=== PATIENT | female | born 1995 | race Asian ===

== ENCOUNTER 2020-01-11 02:02 | Inpatient (IN) | payer OTHER ==
[~2020-01-11] VITALS: Ht 170.2 cm; Wt 85.0 kg
[2020-01-11 08:40] VITALS: BP 124/77
[2020-01-11] MEDS ORDERED: LORazepam 2 MG TABLET PO PRN (08:45)
[2020-01-11] MEDS ORDERED: NICOTINE 14 MG/24 HOUR PATCH TD PRN (10:00)
[2020-01-11] MEDS ORDERED: GuaiFENesin/D-METHORPHAN [SUGAR-FREE] 200-20MG/10 ML SYRUP UDCUP PO PRN (10:00)
[2020-01-11] MEDS ORDERED: CloNIDine HCL 0.1 MG TABLET PO PRN (10:00)
[2020-01-11] MEDS ORDERED: DOCUSATE SODIUM 100 MG CAPSULE PO PRN (10:00)
[2020-01-11] MEDS ORDERED: PETROLATUM,WHITE 28 GM JELLY TP PRN (10:00)
[2020-01-11] MEDS ORDERED: ONDANSETRON HCL 4 MG TABLET PO PRN (10:00)
[2020-01-11] MEDS ORDERED: LOPERAMIDE HCL 2 MG CAPSULE PO PRN (10:00)
[2020-01-11] MEDS ORDERED: MAGNESIUM HYDROXIDE SUSPENSION 30 ML UDCUP PO PRN (10:00)
[2020-01-11] MEDS ORDERED: ALBUTEROL SULFATE HFA 90 MCG/PUFF 8 GM INHALER IH PRN (10:00)
[2020-01-11] MEDS ORDERED: MAG HYDROX/AL HYDROX/SIMETH ES 30 ML SUSPENSION UDCUP PO PRN (10:00)
[2020-01-11] MEDS ORDERED: IBUPROFEN 400 MG TABLET PO PRN (10:00)
[2020-01-11] MEDS ORDERED: ACETAMINOPHEN 325 MG TABLET PO PRN (10:00)
[2020-01-11] MEDS ORDERED: INFLUENZA VIRUS VACCINE QVS 2019-20 (3YR+)/PF 60 MCG/0.5 ML SYRINGE IM ONE (10:45)
[2020-01-11] MEDS ORDERED: FLUO-191 PO (11:28)
[2020-01-11] MEDS ORDERED: RISP.5 PO (11:28)
[2020-01-11] MEDS ORDERED: IBUP-2271 PO (11:28)
[2020-01-11] MEDS ORDERED: CEPH-582 PO (11:28)
[2020-01-11] MEDS: CEPHALEXIN MONOHYDRATE 500 MG CAPSULE PO SCH ×3 (12:55→20:18)
[2020-01-11] MEDS ORDERED: LevETIRAcetam 500 MG TABLET PO SCH (13:00)
[2020-01-11 13:01] VITALS: BP 131/87
[2020-01-11 16:00] VITALS: BP 102/64
[2020-01-11] MEDS: FLUoxetine HCL 20 MG CAPSULE PO SCH (16:11)
[2020-01-11] MEDS: ZOLPIDEM TARTRATE 10 MG TABLET PO PRN (22:01)
[2020-01-12 05:20] VITALS: BP 114/67
[2020-01-12 08:03] LABS: BASOPHILS % (AUTO) 0.4 % (0.0-2.0); EOSINOPHILS % (AUTO) 1.6 % (1.0-6.0); HEMOGLOBIN 13.2 g/dL (12.0-16.0); LYMPHOCYTES # (AUTO) 3.2 K/uL (1.0-4.8); LYMPHOCYTES % (AUTO) 30.7 % (22.0-44.0); MEAN CORPUSCULAR HEMOGLOBIN 31.3 pg (26.0-34.0); MEAN CORPUSCULAR HGB CONC 32.9 G/dL (31.0-37.0); MEAN CORPUSCULAR VOLUME 95 fL (80-100); MONOCYTES # (AUTO) 0.7 K/uL (0.1-1.0); MONOCYTES % (AUTO) 6.9 % (2.0-9.0); NEUTROPHILS # (AUTO) 6.3 K/uL (1.8-7.7); NEUTROPHILS % (AUTO) 60.4 % (40.0-70.0); PLATELET COUNT (AUTO) 438 K/uL (150-450); RED CELL DISTRIBUTION WIDTH 12.6 % (11.5-14.5)
[2020-01-12 08:25] VITALS: BP 123/81
[2020-01-12] MEDS: CEPHALEXIN MONOHYDRATE 500 MG CAPSULE PO SCH ×4 (08:29→20:11)
[2020-01-12] MEDS: FLUoxetine HCL 20 MG CAPSULE PO SCH (08:29)
[2020-01-12 08:33] LABS: AMPHET/METH SCREEN,URINE NEGATIVE (NEGATIVE); BARBITURATE SCREEN, URINE NEGATIVE (NEGATIVE); BENZODIAZEPINES SCREEN,URINE NEGATIVE (NEGATIVE); CANNABINOID SCREEN,URINE NEGATIVE (NEGATIVE); COCAINE SCREEN,URINE NEGATIVE (NEGATIVE); METHADONE SCREEN, URINE NEGATIVE (NEGATIVE); OPIATE SCREEN,URINE NEGATIVE (NEGATIVE)
[2020-01-12 08:38] LABS: PHENCYCLIDINE SCREEN,URINE NEGATIVE (NEGATIVE)
[2020-01-12 08:48] LABS: ALANINE AMINOTRANSFERASE 16 U/L (12-78); ALBUMIN 3.8 g/dL (3.4-5.0); ALKALINE PHOSPHATASE 47 U/L (46-116); ANION GAP 9 mmol/L (8-16); ASPARTATE AMINOTRANSFERASE 12 U/L (15-37); BILIRUBIN,TOTAL 0.8 mg/dL (0.1-1.0); CALCIUM, TOTAL 9.2 mg/dL (8.8-10.5); CARBON DIOXIDE 25 mmol/L (22-29); CHLORIDE 103 mmol/L (98-107); CHOL/HDL RATIO 4.5 (3.9-5.7); CHOLESTEROL 172 mg/dL (131-200); CREATININE 0.66 mg/dL (0.60-1.30); FREE T4 (FREE THYROXINE) 1.09 ng/dL (0.76-1.46); GLOMERULAR FILTR. RATE CALC > 60 mL/min (>60); GLUCOSE,RANDOM 78 mg/dL (70-110); HCG,QUANTITATIVE < 1 mIU/mL (0-6); HDL CHOLESTEROL 38 mg/dL (40-60); LDL CHOL (CALC.) 113 mg/dL (0-130); POTASSIUM 3.7 mmol/L (3.5-5.1); SODIUM SERUM 137 mmol/L (136-145); THYROID STIMULATING HORMONE 3.35 uIU/mL (0.36-3.74); TOTAL PROTEIN, SERUM 7.3 g/dL (6.4-8.2); TRIGLYCERIDES 103 mg/dL (15-150); UREA NITROGEN, BLOOD 9 mg/dL (7-18)
[2020-01-12 17:18] VITALS: BP 116/73
[2020-01-12] MEDS: ZOLPIDEM TARTRATE 10 MG TABLET PO PRN (22:07)
[2020-01-13 01:02] VITALS: BP 118/73
[2020-01-13] MEDS: CEPHALEXIN MONOHYDRATE 500 MG CAPSULE PO SCH ×4 (08:05→21:17)
[2020-01-13] MEDS: FLUoxetine HCL 20 MG CAPSULE PO SCH (08:05)
[2020-01-13 08:47] VITALS: BP 113/74
[2020-01-13 16:23] VITALS: BP 122/70
[2020-01-13] MEDS: ZOLPIDEM TARTRATE 10 MG TABLET PO PRN (21:43)
[2020-01-14 05:52] VITALS: BP 113/76
[2020-01-14 08:10] VITALS: BP 122/71
[2020-01-14] MEDS: FLUoxetine HCL 20 MG CAPSULE PO SCH (09:06)
[2020-01-14] MEDS: CEPHALEXIN MONOHYDRATE 500 MG CAPSULE PO SCH (09:06)
== END 2020-01-14 12:09 | disposition short-term general hospital (02) | DRG 881 ==
LOC: B2S 08:58
PROVIDERS: ADMIT Psychiatry & Neurology Child & Adolescent Psychiatry; ATTEND Psychiatry & Neurology Child & Adolescent Psychiatry
DX: F32.9 Major depressive disorder, single episode, unspecified (principal); R45.851 Suicidal ideations; N39.0 Urinary tract infection, site not specified; Z28.21 Immunization not carried out because of patient refusal; Z91.5 Personal history of self-harm; Z81.8 Family history of other mental and behavioral disorders; Z90.49 Acquired absence of other specified parts of digestive tract; F10.10 Alcohol abuse, uncomplicated; F12.90 Cannabis use, unspecified, uncomplicated
CPT/HCPCS: 80307; 84439; 84443

== ENCOUNTER 2020-07-22 09:14 | Inpatient (IN) | payer MEDICAID, OTHER ==
[~2020-07-22] VITALS: Ht 167.6 cm; Wt 87.6 kg
[~2020-07-22 09:14] MED LIST: CEPH-582 PO; FLUO-191 PO
[2020-07-22] MEDS ORDERED: ZOLPIDEM TARTRATE 10 MG TABLET PO PRN (20:15)
[2020-07-22] MEDS ORDERED: HALOPERIDOL 5 MG TABLET PO PRN (20:15)
[2020-07-22] MEDS ORDERED: LORazepam 0.5 MG TABLET PO PRN (20:15)
[2020-07-22 20:39] VITALS: BP 121/84
[2020-07-22] MEDS ORDERED: LORazepam 2 MG TABLET PO PRN (20:45)
[2020-07-23 00:09] LABS: APPEARANCE,URINE CLOUDY (CLEAR); BILIRUBIN,URINE NEGATIVE (NEGATIVE); GLUCOSE, URINE (UA) NEGATIVE (NEGATIVE); KETONES,URINE NEGATIVE (NEGATIVE); LEUKOCYTE ESTERASE ,URINE SMALL (NEGATIVE); NITRATE,URINE NEGATIVE (NEGATIVE); OCCULT BLOOD,URINE NEGATIVE (NEGATIVE); PROTEIN,URINE NEGATIVE (NEGATIVE); UROBILINOGEN,URINE 0.2 mg/dL (<=1.0)
[2020-07-23 00:16] LABS: BACTERIA,URINE Few /HPF (None Seen); RBC,URINE 0-2 /HPF (0-2); SQUAMOUS EPITHELIAL CELL,UR Few /LPF (None Seen)
[2020-07-23] MEDS ORDERED: LOPERAMIDE HCL 2 MG CAPSULE PO PRN (06:30)
[2020-07-23] MEDS ORDERED: MAGNESIUM HYDROXIDE SUSPENSION 30 ML UDCUP PO PRN (06:30)
[2020-07-23] MEDS ORDERED: DOCUSATE SODIUM 100 MG CAPSULE PO PRN (06:30)
[2020-07-23] MEDS ORDERED: GuaiFENesin/D-METHORPHAN [SUGAR-FREE] 200-20MG/10 ML SYRUP UDCUP PO PRN (06:30)
[2020-07-23] MEDS ORDERED: CloNIDine HCL 0.1 MG TABLET PO PRN (06:30)
[2020-07-23] MEDS ORDERED: PETROLATUM,WHITE 28 GM JELLY TP PRN (06:30)
[2020-07-23] MEDS ORDERED: ONDANSETRON HCL 4 MG TABLET PO PRN (06:30)
[2020-07-23] MEDS ORDERED: ALBUTEROL SULFATE HFA 90 MCG/PUFF 8 GM INHALER IH PRN (06:30)
[2020-07-23] MEDS ORDERED: MAG HYDROX/AL HYDROX/SIMETH ES 30 ML SUSPENSION UDCUP PO PRN (06:30)
[2020-07-23] MEDS ORDERED: NICOTINE 14 MG/24 HOUR PATCH TD PRN (06:30)
[2020-07-23] MEDS ORDERED: IBUPROFEN 400 MG TABLET PO PRN (06:30)
[2020-07-23] MEDS ORDERED: ACETAMINOPHEN 325 MG TABLET PO PRN (06:30)
[2020-07-23 08:00] VITALS: BP 120/74
[2020-07-23] MEDS: FLUoxetine HCL 20 MG CAPSULE PO SCH (11:33)
[2020-07-23] MEDS ORDERED: FLUoxetine HCL 20 MG CAPSULE PO SCH (15:00)
[2020-07-23] MEDS: BusPIRone HCL 5 MG TABLET PO SCH ×2 (15:11→20:04)
[2020-07-23 20:32] VITALS: BP 105/69
[2020-07-24 08:19] LABS: CHOL/HDL RATIO 4.8 (3.9-5.7)
[2020-07-24] MEDS: CEPHALEXIN MONOHYDRATE 500 MG CAPSULE PO SCH ×3 (09:16→16:44)
[2020-07-24] MEDS: FLUoxetine HCL 20 MG CAPSULE PO SCH (09:16)
[2020-07-24] MEDS: BusPIRone HCL 5 MG TABLET PO SCH ×2 (09:16→20:19)
[2020-07-24 09:35] VITALS: BP 117/85
[2020-07-24 16:00] VITALS: BP 112/73
[2020-07-24] MEDS ORDERED: INFLUENZA VIRUS VACCINE QVS 2020-21 (6MO+)/PF 60 MCG/0.5 ML SYRINGE IM ONE (21:30)
[2020-07-25] MEDS: BusPIRone HCL 5 MG TABLET PO SCH ×2 (08:23→20:23)
[2020-07-25] MEDS: CEPHALEXIN MONOHYDRATE 500 MG CAPSULE PO SCH ×3 (08:23→16:14)
[2020-07-25] MEDS: FLUoxetine HCL 20 MG CAPSULE PO SCH (08:23)
[2020-07-25 10:29] VITALS: BP 117/80
[2020-07-25] MEDS ORDERED: CEPH-582 PO (12:22)
[2020-07-25] MEDS ORDERED: BUSP5TAB20 PO (12:22)
[2020-07-25 16:00] VITALS: BP 108/72
[2020-07-26 08:00] VITALS: BP 119/82
[2020-07-26] MEDS: CEPHALEXIN MONOHYDRATE 500 MG CAPSULE PO SCH (10:38)
[2020-07-26] MEDS: FLUoxetine HCL 20 MG CAPSULE PO SCH (10:38)
[2020-07-26] MEDS: BusPIRone HCL 5 MG TABLET PO SCH (10:38)
== END 2020-07-26 12:30 | disposition home or self-care (01) | DRG 751 ==
LOC: 3EI 19:55
DX: F33.2 Major depressive disorder, recurrent severe without psychotic features (principal); R45.851 Suicidal ideations; K21.9 Gastro-esophageal reflux disease without esophagitis; F43.10 Post-traumatic stress disorder, unspecified; Z79.899 Other long term (current) drug therapy; Z91.5 Personal history of self-harm; Z23 Encounter for immunization
CPT/HCPCS: 87081; 90686